=== PATIENT | female | born 1960 | race African-American/Black ===

== ENCOUNTER 2022-12-21 02:05 | Emergency (ER) | payer OTHER ==
[~2022-12-21] VITALS: Ht 177.8 cm; Wt 71.0 kg
[2022-12-21] MEDS ORDERED: IBUP-2028 MT (05:10)
[2022-12-21 06:58] VITALS: BP 157/87
== END 2022-12-21 07:00 | disposition home or self-care (01) ==
LOC: ER 02:05
DX: S16.1XXA Strain of muscle, fascia and tendon at neck level, initial encounter (principal); S80.02XA Contusion of left knee, initial encounter; S80.01XA Contusion of right knee, initial encounter; V43.52XA Car driver injured in collision with other type car in traffic accident, initial encounter; Y93.89 Activity, other specified; Y92.89 Other specified places as the place of occurrence of the external cause; Y99.8 Other external cause status
CPT/HCPCS: 73560; 99284

== ENCOUNTER 2023-06-27 12:41 | Emergency (ER) | payer OTHER ==
[~2023-06-27] VITALS: Ht 177.8 cm; Wt 62.9 kg
[~2023-06-27 12:41] MED LIST: IBUP-2028 MT
[2023-06-27 13:12] VITALS: O2SAT 99
[2023-06-27] MEDS ORDERED: KETOROLAC 30MG/ML VIAL IM ONE (14:00)
[2023-06-27] MEDS ORDERED: NAPR500T7 MT (17:29)
[2023-06-27 18:19] VITALS: BP 146/97; PULSE 83; RESP 16; TEMP 98.5
== END 2023-06-27 18:20 | disposition home or self-care (01) ==
LOC: ER 14:48
DX: S80.02XA Contusion of left knee, initial encounter (principal); S16.1XXA Strain of muscle, fascia and tendon at neck level, initial encounter; S39.012A Strain of muscle, fascia and tendon of lower back, initial encounter; V49.59XA Passenger injured in collision with other motor vehicles in traffic accident, initial encounter; Y93.89 Activity, other specified; Y92.89 Other specified places as the place of occurrence of the external cause; Y99.8 Other external cause status
CPT/HCPCS: 99285; 72125; 73562; 73610; 72131; 96372; J1885

== ENCOUNTER 2024-05-20 15:11 | Emergency (ER) | payer MEDICAID ==
[~2024-05-20] VITALS: Ht 170.2 cm; Wt 65.0 kg
[~2024-05-20 15:11] MED LIST changes: +NAPR500T7 MT
[2024-05-20 15:18] VITALS: O2SAT 100
[2024-05-20] MEDS: SODIUM CHLORIDE 0.9% 1,000 ML IV ONE (15:44)
[2024-05-20] MEDS: MORPHINE SULFATE 4 MG/ML INJ (FOR IV/IM USE) IV STA (15:44)
[2024-05-20] MEDS: ONDANSETRON HCL 4MG/2ML INJ IV STA (15:44)
[2024-05-20 16:21] LABS: BASOPHILS % 0.4 % (0.0-2.0); HEMATOCRIT. 47.4 % (36.0-48.0); LYMPHOCYTES % 13.8 % (20.0-50.0); MEAN CORPUSCULAR HEMOGLOBIN 26.6 pg (28.0-32.0); MEAN CORPUSCULAR HGB CONC 31.7 g/dL (31.0-37.0); MEAN CORPUSCULAR VOLUME 83.8 fL (81.0-99.0); MEAN PLATELET VOLUME 7.8 fl (7.4-10.4); MONOCYTES % 3.3 % (2.0-8.0); NEUTROPHILS % 82.5 % (40.0-76.0); PLATELET 347 x1000/uL (130-400); RED BLOOD CELL COUNT 5.66 mill/uL (4.2-5.4); RED CELL DISTRIBUTION WIDTH 14.5 % (11.6-14.6); WHITE BLOOD COUNT 6.7 x1000/uL (4.5-11.0)
[2024-05-20 16:28] LABS: CHLORIDE 103 mEq/L (98-107); POTASSIUM 3.9 mEq/L (3.5-5.1); SODIUM 136 mEq/L (136-145)
[2024-05-20 16:30] LABS: CALCIUM 9.6 mg/dL (8.7-10.4); CARBON DIOXIDE 26 mEq/L (21-32); PROTHROMBIN TIME 10.9 sec (9.6-11.0)
[2024-05-20 16:35] LABS: CREATININE 0.7 mg/dL (0.6-1.0); GLUCOSE 117 mg/dL (70-105); UREA NITROGEN BLOOD 10 mg/dL (9-23)
[2024-05-20 16:37] LABS: ALANINE AMINOTRANSFERASE 14 IU/L (10-49); ALBUMIN 4.6 g/dL (3.2-4.8); ASPARTATE AMINOTRANSFERASE 19 IU/L (<34); BILIRUBIN DIRECT 0.1 mg/dL (<=3.0); BILIRUBIN TOTAL 0.5 mg/dL (0.1-1.0); PROTEIN TOTAL 8.2 g/dL (6.0-8.3)
[2024-05-20] MEDS ORDERED: OMEP40CA20 MT (18:30)
[2024-05-20 18:38] VITALS: BP 186/81; PULSE 72; RESP 18; TEMP 36.66960; O2SAT 100
== END 2024-05-20 19:21 | disposition home or self-care (01) ==
LOC: ER 15:11
DX: R10.33 Periumbilical pain (principal); R11.2 Nausea with vomiting, unspecified; R19.7 Diarrhea, unspecified; F17.210 Nicotine dependence, cigarettes, uncomplicated
CPT/HCPCS: 80076; 80048; 83690; 85025; 85610; 36415; 74176; 93005; 96361; 96374; 96375; 99291; J2405; J2270; J7030; Z7610 ×2